=== PATIENT | female | born 2000 | race Caucasian/White ===

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

== ENCOUNTER 2018-06-15 13:44 | Emergency (ER) | payer OTHER ==
[2018-06-15 15:07] LABS: Bilirubin Small (Negative); Blood, Urine Negative (Negative); Clarity CLEAR (Clear); Glucose, Urine (Dipstick) Negative (Negative); Leukocyte Negative (Negative); Nitrite Negative (Negative); Protein, Urine (Dipstick) Trace mg/dL (Neg-Trace); Specific Gravity, Urine 1.033 (1.002-1.036)
== END 2018-06-15 17:24 | disposition home or self-care (01) ==
LOC: ERS 13:44
DX: J10.1 Influenza due to other identified influenza virus with other respiratory manifestations (principal); G40.909 Epilepsy, unspecified, not intractable, without status epilepticus; Z79.899 Other long term (current) drug therapy
CPT/HCPCS: 81003; 87804; 96360

== ENCOUNTER 2018-09-28 16:09 | Inpatient (IN) | payer OTHER ==
[2018-09-28] MEDS ORDERED: Diphenoxylate HCl/Atropine Tablet PO PRN ×2 (22:34)
[2018-09-28] MEDS ORDERED: Lidocaine 1% (PF) 30 ML VIAL SC PRN (22:34)
[2018-09-28] MEDS ORDERED: Misoprostol 200 MCG TAB PR PRN (22:34)
[2018-09-28] MEDS ORDERED: Docusate 100 MG CAP PO PRN (22:34)
[2018-09-28] MEDS ORDERED: Ondansetron PF 4 MG/2 ML Vial IVP PRN (22:34)
[2018-09-28] MEDS ORDERED: Acetaminophen 500 MG TAB PO PRN (22:34)
[2018-09-28] MEDS ORDERED: HYDROcodone/Acetaminophen 5/325 mg Tablet PO PRN ×2 (22:34)
[2018-09-28] MEDS ORDERED: Zolpidem Tartrate 5 MG TAB PO PRN (22:34)
[2018-09-28] MEDS ORDERED: Promethazine HCl 25 MG/ML VIAL IM PRN (22:34)
[2018-09-28] MEDS ORDERED: Ibuprofen 800 MG TAB PO PRN (22:34)
[2018-09-28] MEDS ORDERED: NS w/ Oxytocin 10 units 500 ML IV SCH ×2 (22:34)
[2018-09-28 22:52] VITALS: BMI 26.2
[2018-09-28] MEDS: Butorphanol Tartrate 1 MG/ML VIAL SLOW IVP PRN (23:35)
[2018-09-28] MEDS: Lactated Ringer's 1,000 ML IV SCH (23:35)
[2018-09-28 23:57] LABS: Hemoglobin 10.8 g/dL (12.0-16.0); Mean Corpuscular HGB CONC 33.8 g/dL (32.0-36.0); Mean Corpuscular Hemoglobin 28.1 pg (25.0-35.0); Mean Corpuscular Volume 83.1 fL (78.0-98.0); Mean Platelet Volume 7.6 fL (7.4-10.4); Platelet Count 277 thou/uL (130-400); RBC Distribution Width 14.6 % (11.5-14.5); Red Blood Cell (RBC) Count 3.84 mill/uL (4.00-5.20); White Blood Cell (WBC) Count 12.6 thou/uL (4.8-10.8)
[2018-09-29 00:38] LABS: Syphilis Antibody Nonreactive (Nonreactive); Syphilis Antibody Index 0.03 S/CO (<1.00 Non-Reactive)
[2018-09-29 01:02] LABS: HBSAg Index 0.23 S/CO (0-0.99); Hep B Surf Ag Non-Reactive S/CO (NonReactive)
[2018-09-29] MEDS: Butorphanol Tartrate 1 MG/ML VIAL SLOW IVP PRN (01:09)
[2018-09-29] MEDS ORDERED: Fentanyl 4 mcg/Bup 0.1% Cadd 100 ML ONE (01:25)
[2018-09-29] MEDS ORDERED: Lactated Ringer's 500 ML IV PRN (02:29)
[2018-09-29] MEDS ORDERED: diphenhydrAMINE 50 MG/ML VIAL IVP PRN (02:29)
[2018-09-29] MEDS ORDERED: Acetaminophen 325 MG TAB PO PRN (02:29)
[2018-09-29] MEDS ORDERED: Ondansetron PF 4 MG/2 ML Vial IVP PRN ×2 (02:29→13:18)
[2018-09-29] MEDS ORDERED: Eucerin (Mineral Oil/Petrolatum,White) 30 gm Jar TOP PRN (02:29)
[2018-09-29] MEDS ORDERED: Promethazine HCl 25 MG/ML VIAL IM PRN (02:29)
[2018-09-29] MEDS ORDERED: Naloxone HCl 0.4 mg/ml Vial IVP PRN ×2 (02:29)
[2018-09-29] MEDS ORDERED: ePHEDrine/0.9% NaCl/PF SYRINGE 50 mg/10 ml SLOW IVP PRN (02:29)
[2018-09-29] MEDS ORDERED: Fentanyl 4 mcg/Bupivacaine 0.1% Cassette 100 ML EPIDURAL SCH (02:30)
[2018-09-29] MEDS ORDERED: Communication Order-Pharmacy FS SCH (02:30)
[2018-09-29] MEDS: Misoprostol 100 MCG TAB VAG SCH ×4 (02:42→15:11)
[2018-09-29] MEDS: Lactated Ringer's 1,000 ML IV SCH (02:43)
[2018-09-29] MEDS ORDERED: Mag-Al Plus 1200 MG/1200 MG/120 MG/30 ML UDCUP PO SCH (06:30)
[2018-09-29] MEDS: NS / Oxytocin 40 units/1000ml 1,000 ML IV PRN ×2 (10:35→11:43)
[2018-09-29] MEDS ORDERED: Zolpidem Tartrate 5 MG TAB PO PRN (13:18)
[2018-09-29] MEDS ORDERED: Bisacodyl 10 MG SUPP PR PRN (13:18)
[2018-09-29] MEDS ORDERED: Milk Of Magnesia 30 ML UDCUP PO PRN (13:18)
[2018-09-29] MEDS ORDERED: Preparation H Ointment 28 GM TUBE PR PRN (13:18)
[2018-09-29] MEDS ORDERED: Benzocaine-Menthol 82.5 ML CAN TOP PRN (13:18)
[2018-09-29] MEDS ORDERED: Acetaminophen/Codeine 30-300mg Tablet PO PRN (13:18)
[2018-09-29] MEDS ORDERED: diphenhydrAMINE 25 MG CAP PO PRN (13:18)
[2018-09-29] MEDS ORDERED: Adacel (T-DAP) 0.5 ML SYRINGE IM ONE (13:18)
[2018-09-29] MEDS ORDERED: Lanolin Ointment 7 GM TUBE TOP PRN (13:18)
[2018-09-29] MEDS ORDERED: Misoprostol 200 MCG TAB VAG PRN (13:30)
[2018-09-29] MEDS ORDERED: NS / Oxytocin 40 units/1000ml 1,000 ML IV SCH (13:30)
[2018-09-29] MEDS: Ibuprofen 800 MG TAB PO SCH ×2 (15:10→21:42)
[2018-09-29] MEDS: Ferrous Sulfate 325 MG TAB PO SCH (16:32)
[2018-09-29] MEDS: Acetaminophen/Codeine 30-300mg Tablet PO PRN (19:25)
[2018-09-29] MEDS: Docusate Calcium (SURFAK) 240 MG CAP PO SCH (21:42)
[2018-09-30] MEDS: Ibuprofen 800 MG TAB PO SCH ×3 (05:44→23:10)
[2018-09-30 06:04] LABS: Hemoglobin 8.1 g/dL (12.0-16.0); Mean Corpuscular HGB CONC 33.4 g/dL (32.0-36.0); Mean Corpuscular Hemoglobin 28.4 pg (25.0-35.0); Mean Platelet Volume 7.8 fL (7.4-10.4); Platelet Count 217 thou/uL (130-400); RBC Distribution Width 14.9 % (11.5-14.5); Red Blood Cell (RBC) Count 2.85 mill/uL (4.00-5.20); White Blood Cell (WBC) Count 13.4 thou/uL (4.8-10.8)
[2018-09-30] MEDS: Ferrous Sulfate 325 MG TAB PO SCH ×2 (08:46→17:13)
[2018-09-30] MEDS: Docusate Calcium (SURFAK) 240 MG CAP PO SCH ×2 (08:46→23:10)
[2018-09-30] MEDS: Prenatal Vitamin 1 TAB PO SCH (08:46)
[2018-09-30] MEDS: Acetaminophen/Codeine 30-300mg Tablet PO PRN (08:46)
[2018-09-30 17:44] VITALS: TEMP 98.1
[2018-10-01] MEDS: Ibuprofen 800 MG TAB PO SCH ×2 (06:40→14:29)
[2018-10-01 07:42] VITALS: BP 93/62
[2018-10-01] MEDS: Ferrous Sulfate 325 MG TAB PO SCH (09:23)
[2018-10-01] MEDS: Docusate Calcium (SURFAK) 240 MG CAP PO SCH (09:23)
[2018-10-01] MEDS: Prenatal Vitamin 1 TAB PO SCH (09:23)
[2018-10-01] MEDS: Acetaminophen/Codeine 30-300mg Tablet PO PRN (09:24)
== END 2018-10-01 15:10 | disposition home or self-care (01) | DRG 807 ==
LOC: L&D 22:16 → 3SW 09-29 13:22 → EDSTATUS 10-02 16:08
PROVIDERS: ADMIT Obstetrics & Gynecology; ATTEND Obstetrics & Gynecology
PROC: 10E0XZZ Delivery of Products of Conception, External Approach (ICD-10-PCS; principal; 2018-09-28)
PROC: 0KQM0ZZ Repair Perineum Muscle, Open Approach (ICD-10-PCS; 2018-09-28)
DX: O69.81X0 Labor and delivery complicated by cord around neck, without compression, not applicable or unspecified (principal); Z37.0 Single live birth; Z3A.39 39 weeks gestation of pregnancy; O70.1 Second degree perineal laceration during delivery
CPT/HCPCS: 36415; 51702; 85027; 86780; 86850; 86870; 86900; 86901; 87340; J0595; J2001; J2590

== ENCOUNTER 2022-06-23 08:05 | Inpatient (IN) | payer MEDICAID, SELFPAY ==
[2022-06-23] MEDS ORDERED: Ondansetron PF 4 MG/2 ML Vial ONE (08:17)
[2022-06-23] MEDS ORDERED: Magnevist 469MG/ML 20 ML VIAL ONE (10:49)
[2022-06-23] MEDS ORDERED: Acetaminophen 650 MG Suppository PR PRN (11:15)
[2022-06-23] MEDS ORDERED: Ondansetron ODT 4 MG TAB PO PRN (11:15)
[2022-06-23] MEDS ORDERED: Ondansetron PF 4 MG/2 ML Vial IVP PRN (11:15)
[2022-06-23] MEDS ORDERED: Acetaminophen 325 MG TAB PO PRN (11:15)
[2022-06-23] MEDS ORDERED: Lorazepam 2 MG/ML VIAL SLOW IVP PRN ×2 (15:32→18:59)
[2022-06-23 17:54] VITALS: BMI 21.2
[2022-06-23] MEDS: levETIRAcetam 500 MG/5 ML VIAL SLOW IVP SCH (18:24)
[2022-06-23] MEDS: Melatonin 3 MG TAB PO PRN (20:06)
[2022-06-23] MEDS ORDERED: Sodium Chloride 0.9% 1,000 ML IV SCH (21:00)
[2022-06-23] MEDS ORDERED: levETIRAcetam in NS 1,500 MG in Premix Bag 1 BAG IVPB SCH (21:00)
[2022-06-23] MEDS ORDERED: levETIRAcetam 500 MG/5 ML VIAL SLOW IVP SCH (21:00)
[2022-06-23 22:07] LABS: Magnesium 1.7 mg/dL (1.6-2.6)
[2022-06-23] MEDS ORDERED: Magnesium 2 GM/50 ML(in water) 2 GM in Premix Bag 1 BAG IVPB SCH (23:30)
[2022-06-24] MEDS ORDERED: Propranolol 10 MG TAB PO SCH (02:30)
[2022-06-24 05:19] LABS: Hemoglobin 10.3 g/dL (12.0-16.0); Mean Corpuscular HGB CONC 34.6 g/dL (32.0-36.0); Mean Corpuscular Hemoglobin 28.7 pg (27.0-31.0); Mean Corpuscular Volume 82.7 fl (78.0-98.0); Mean Platelet Volume 8.2 fL (7.4-10.4); Platelet Count 181 10x3/uL (130-400); RBC Distribution Width 11.4 % (11.5-14.5); White Blood Cell (WBC) Count 3.9 10x3/uL (4.8-10.8)
[2022-06-24 05:37] LABS: Anion Gap 10 mmol/L (10-20); BUN (Urea Nitrogen) 10 mg/dL (7.0-18.7); Calc. Creatinine Clearance 149 mL/min (70-130); Calcium 9.2 mg/dL (7.8-10.44); Carbon Dioxide 21 mmol/L (22-29); Cardiac Risk 3.4 (Less than 4.5); Chloride 110 mmol/L (98-107); Cholesterol 79 mg/dl (< 200 Desired); Estimated GFR 136; Glucose 86 mg/dL (70-105); HDL Cholesterol 23 mg/dL (>60 Neg Risk); LDL Cholesterol, Calculated 40 mg/dL; Magnesium 2.1 mg/dL (1.6-2.6); Potassium 3.7 mmol/L (3.5-5.1); Sodium 137 mmol/L (136-145); Triglycerides 78 mg/dL (Less than 150)
[2022-06-24 05:55] LABS: Pregnancy Test - Urine (BHCG) Negative (Negative); Specific Gravity 1.019 (1.002-1.036)
[2022-06-24 05:56] LABS: Pregu Control Background? CLEAR/WHITE (CLR/WHITE); Pregu Control Bar Appear? YES (CONTROL BAR)
[2022-06-24 05:57] LABS: Lymphocytes 55 % (21-51); MDiff Complete? YES; Monocytes 8 % (0-10); Neutrophil 37 % (42-75); Platelet Morphology Comment Appears Adequate; RBC Morphology Normal
[2022-06-24] MEDS: levETIRAcetam 500 MG/5 ML VIAL SLOW IVP SCH ×2 (06:13→18:26)
[2022-06-24] MEDS: Propranolol 10 MG TAB PO SCH ×3 (08:34→21:13)
[2022-06-24] MEDS ORDERED: Polyethylene Glycol 3350 17 GM Packet PO PRN (17:40)
[2022-06-24] MEDS: Melatonin 3 MG TAB PO PRN (23:18)
[2022-06-25 05:25] LABS: #Eosinphils 0.1 thou/uL (0.0-0.7); #Lymphocytes 2.3 thou/uL (1.20-3.40); #Monocytes 0.6 thou/uL (0.11-0.59); #Neutrophils 2.2 thou/uL (1.40-6.50); %Basophils 0.2 % (0.0-1.0); %Eosinophils 1.2 % (0.0-10.0); %Lymphocytes 45.3 % (21.0-51.0); %Monocytes 10.6 % (0.0-10.0); %Neutrophils 42.6 % (42.0-75.0); Hemoglobin 11.3 g/dL (12.0-16.0); Mean Corpuscular HGB CONC 34.5 g/dL (32.0-36.0); Mean Corpuscular Hemoglobin 28.5 pg (27.0-31.0); Mean Corpuscular Volume 82.6 fl (78.0-98.0); Mean Platelet Volume 8.1 fL (7.4-10.4); Platelet Count 211 10x3/uL (130-400); RBC Distribution Width 11.3 % (11.5-14.5); Red Blood Cell (RBC) Count 3.97 mill/uL (4.20-5.40); White Blood Cell (WBC) Count 5.2 10x3/uL (4.8-10.8)
[2022-06-25] MEDS: levETIRAcetam 500 MG/5 ML VIAL SLOW IVP SCH (05:35)
[2022-06-25 05:47] LABS: Anion Gap 10 mmol/L (10-20); BUN (Urea Nitrogen) 12 mg/dL (7.0-18.7); Calc. Creatinine Clearance 142 mL/min (70-130); Calcium 9.7 mg/dL (7.8-10.44); Carbon Dioxide 25 mmol/L (22-29); Chloride 107 mmol/L (98-107); Estimated GFR 135; Glucose 90 mg/dL (70-105); Potassium 3.8 mmol/L (3.5-5.1); Sodium 138 mmol/L (136-145)
[2022-06-25] MEDS ORDERED: Methimazole 10 MG TAB PO SCH (09:00)
[2022-06-25] MEDS: Propranolol 10 MG TAB PO SCH (09:13)
[2022-06-25 12:31] VITALS: BP 100/67; TEMP 98.6
== END 2022-06-25 13:04 | disposition home or self-care (01) | DRG 101 ==
LOC: ERS 08:05 → ERHOLD 09:09 → 2SW 15:03 → OBSVTOIN 06-24 15:19
PROVIDERS: ADMIT Family Medicine; ATTEND Internal Medicine
DX: G40.919 Epilepsy, unspecified, intractable, without status epilepticus (principal); G43.909 Migraine, unspecified, not intractable, without status migrainosus; E05.90 Thyrotoxicosis, unspecified without thyrotoxic crisis or storm; F41.9 Anxiety disorder, unspecified; F32.A Depression, unspecified; Z88.1 Allergy status to other antibiotic agents; Z88.2 Allergy status to sulfonamides; Z88.8 Allergy status to other drugs, medicaments and biological substances; Z90.49 Acquired absence of other specified parts of digestive tract; Z79.899 Other long term (current) drug therapy
CPT/HCPCS: 36415; 70553; 80048; 80061; 80177; 81025; 83735; 84436; 84443; 85025; 93005; 95712; 95819; 95957; 96374; 96375; 96376; A9579; G0378; J1953; J2060; J2405; J3475; J7050

== ENCOUNTER 2024-02-23 18:20 | Emergency (ER) | payer MEDICAID, OTHER ==
[2024-02-23 19:47] LABS: #Basophils 0.06 10x3/uL (0.0-0.2); %Basophils 0.4 % (0.0-1.0); %Eosinophils 1.3 % (0.0-10.0); %Lymphocytes 24.8 % (21.0-51.0); %Monocytes 6.9 % (0.0-10.0); %Neutrophils 66.2 % (42.0-75.0); Hematocrit 36.4 % (36.0-47.0); Hemoglobin 12.3 g/dL (12.0-16.0); Mean Corpuscular HGB CONC 33.8 g/dL (32.0-36.0); Mean Corpuscular Hemoglobin 28.6 pg (27.0-31.0); Mean Corpuscular Volume 84.7 fL (78.0-98.0); Mean Platelet Volume 9.8 fL (7.4-10.4); Platelet Count 324 10x3/uL (130-400); RBC Distribution Width 12.1 % (11.5-14.5)
[2024-02-23 19:51] LABS: BHCG - Serum Negative (NEGATIVE); Pregs Control Background? CLEAR/WHITE (CLR/WHITE); Pregs Control Bar Appear? YES (CONTROL BAR)
[2024-02-23 19:59] LABS: ALT (SGPT) 14 U/L (8-55); AST (SGOT) 14 U/L (5-34); Albumin 3.8 g/dL (3.5-5.0); Alkaline Phosphatase 106 U/L (40-110); Anion Gap 7 mmol/L (10-20); BUN (Urea Nitrogen) 12 mg/dL (7.0-18.7); Bilirubin, Total 0.3 mg/dL (0.2-1.2); Calc. Creatinine Clearance 0 mL/min (70-130); Calcium 9.2 mg/dL (7.8-10.44); Carbon Dioxide 29 mmol/L (22-29); Chloride 108 mmol/L (98-107); Estimated GFR 101; Glucose 94 mg/dL (70-105); Magnesium 2.4 mg/dL (1.6-2.6); Potassium 3.4 mmol/L (3.5-5.1); Protein, Total 6.8 g/dL (6.0-8.3); Sodium 141 mmol/L (136-145)
[2024-02-23] MEDS ORDERED: Potassium Chloride 20 MEQ TAB ONE (20:41)
== END 2024-02-23 21:10 | disposition home or self-care (01) ==
LOC: ERS 18:20
DX: G40.909 Epilepsy, unspecified, not intractable, without status epilepticus (principal); R51.9 Headache, unspecified; I10 Essential (primary) hypertension
CPT/HCPCS: 80053; 83735; 84443; 84703; 85025; 93005; 96365; 96375